=== PATIENT | female | born 1980 | race African-American/Black ===

== ENCOUNTER 2023-12-10 17:45 | Emergency (ER) | payer BC ==
[~2023-12-10] VITALS: Ht 175.3 cm; Wt 56.7 kg
[2023-12-10 17:58] VITALS: BP 110/62; TEMP 98.7; O2SAT 98
[2023-12-10] MEDS ORDERED: LEVETIRACETAM (500MG) 1,000 MG in IV NS 0.9% 90 ML IV SCH (21:00)
== END 2023-12-10 21:52 | disposition left against medical advice (07) ==
LOC: ER 18:08
DX: R55 Syncope and collapse (principal); Z53.21 Procedure and treatment not carried out due to patient leaving prior to being seen by health care provider
CPT/HCPCS: J7030; J1953